=== PATIENT | female | born 1970 | race Caucasian/White ===

== ENCOUNTER 2024-12-28 01:56 | Emergency (ER) | payer OTHER, SELFPAY ==
[2024-12-28 01:57] VITALS: BP 124/74; PULSE 75; RESP 14; TEMP 36.4; O2SAT 99
--- NOTE | 2024-12-28 03:22 | ED_ITS ---
HPI - General Adult General Chief complaint: Unspecified Stated complaint: Post op day 12 breast lift, infectoin Time Seen by Provider: 12/28/24 03:00 Source: patient Mode of arrival: ambulatory Limitations: no limitations History of Present Illness HPI narrative: Patient presents postop day 12 from a revision/exchange of her breast implants with breast reduction. This procedure was performed 12/15/2024 in [facility] at [facility] in [address] [place] [address] by surgeon Juan Ballard. She had a follow-up appointment the next day and then another follow-up appointment 1 week after. She initially had to 450 cc saline implants placed 20 years ago followed by 500cc but 2 weeks ago changed out to 375cc. 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 During/near the end of the shift she noticed that her bandages were drained in foul malodorous smelling purulent discharge. She denies any fevers or chills but she felt more tired and fatigued than normal. She had texted him yesterday at that time and inquired about any antibiotic use and he had recommendations for bandage/dressing changes with particular tape instructions but otherwise did not recommend antibiotics at that time. Overnight she has continued to have some scant purulent drainage particular under the left breast that she noticed at 2:00 a.m. No nipple discharge. 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 HEAD: Normocephalic, atraumatic. EYES: Non injected, non icteric ENT: Nares clear, no rhinorrhea or epistaxis. NECK: Supple. CHEST: Speaking in full sentences. No respiratory distress. Breast: Generally symmetric breasts with well-healing ecchymosis particularly along the inferior aspect. Breasts are nontender to palpation without masses or abnormalities. There is an area of purulence at the left lower quadrant of the left breast. No axillary lymphadenopathy. No tenderness within the tail of Hope bilaterally. No appreciable nipple discharge. HEART: Regular rate and rhythm. . ABDOMEN: Soft, nondistended. EXTREMITIES: Normal range of motion. No lower extremity edema. SKIN: Warm, dry, no rash. NEURO: No focal deficits. Alert and oriented x3. PSYCH: Normal mood and affect. Course Vital Signs Vital signs: Vital Signs Temperature 97.6 F 12/28/24 01:57 Pulse Rate 75 12/28/24 01:57 Respiratory Rate 14 12/28/24 01:57 Blood Pressure 124/74 12/28/24 01:57 Pulse Oximetry 99 12/28/24 01:57 Oxygen Delivery Room Air 12/28/24 01:57 Temperature 97.6 F 12/28/24 01:57 Pulse Rate 74 12/28/24 04:41 Respiratory Rate 16 12/28/24 04:41 Blood Pressure 108/56 L 12/28/24 04:41 Pulse Oximetry 100 12/28/24 04:41 Oxygen Delivery Room Air 12/28/24 01:57 Medical Decision Making MDM Narrative Medical decision making narrative: Patient presents postop day 12 from a breast implant revision and breast lift performed on 12/15/2024 in [facility] at [facility] in [address] [place] [address] by surgeon Juan Ballard. She is concerned about a postop infection noting some purulent foul-smelling drainage at incision site under left breast. In the emergency department they are afebrile with vital signs within normal limits. Left generally unremarkable with normal renal function no leukocytosis. A wound culture was obtained from the area of concern. Patient has no known drug allergies. Patient given 1st dose of cephalexin in the emergency department with the rest of the course prescribed. She is encouraged to follow-up with her surgeon and return to the emergency department with any new/worsening/unmanaged symptoms. She verifies understanding. Stable for discharge. Differential Diagnosis Differential Diagnosis: Postop complication, infection, abscess; leak Vital Signs Vital Signs: Vital Signs Temperature 97.6 F 12/28/24 01:57 Pulse Rate 75 12/28/24 01:57 Respiratory Rate 14 12/28/24 01:57 Blood Pressure 124/74 12/28/24 01:57 Pulse Oximetry 99 12/28/24 01:57 Oxygen Delivery Room Air 12/28/24 01:57 Temperature 97.6 F 12/28/24 01:57 Pulse Rate 74 12/28/24 04:41 Respiratory Rate 16 12/28/24 04:41 Blood Pressure 108/56 L 12/28/24 04:41 Pulse Oximetry 100 12/28/24 04:41 Oxygen Delivery Room Air 12/28/24 01:57 Lab Data 12/28/24 03:37 12/28/24 03:37 Labs: Lab Results 12/28/24 Range/Units 03:37 WBC 4.8 (4.5-10.0) K/mm3 RBC 5.20 (4.2-5.4) M/mm3 Hgb 14.8 (12.0-15.0) g/dL Hct 45.5 (37.0-47.0) % MCV 87.5 (80-100) fl MCH 28.5 (26-34) pg MCHC 32.5 (32-36) g/dl RDW 14.6 H (11.5-14.5) % Plt Count 378 H (150-375) k/mm3 MPV 9.4 (7.4-10.4) fl Immature Gran % (Auto) 0.2 (0-0.5) % Neut % (Auto) 62.7 (45.5-73.1) % Lymph % (Auto) 25.5 (18.3-44.2) % Cotton % (Auto) 8.5 (2.6-8.5) % Eos % (Auto) 1.9 (0-4.4) % Baso % (Auto) 1.2 (0.2-1.2) % Lymph # (Auto) 1.23 (0.9-3.2) K/mm3 Cotton # (Auto) 0.4 (0.1-0.6) K/mm3 Eos # (Auto) 0.1 (0-0.3) K/mm3 Baso # (Auto) 0.1 (0.0-0.1) K/mm3 Abs Immat Gran (auto) 0.01 (0.00-0.031) K/mm3 Absolute Neuts (auto) 3.0 (1.3-6.7) K/mm3 Absolute Nucleated RBC 0.000 (0.0-0.012) K/mm3 Nucleated RBC % 0.0 (0.0-0.2) % Sodium 139 (137-145) mmol/L Potassium 4.3 (3.4-5.0) mmol/L Chloride 105 (98-107) mmol/L Carbon Dioxide 24 (22-30) mmol/L Anion Gap 10 (4-12) mmol/L BUN 11 (7-17) mg/dL Creatinine 0.85 (0.7-1.0) mg/dL Estim Creat Clear Calc 61 ml/min Estimated GFR > 60 (59 - ) Glucose 88 (65-110) mg/dL Calcium 8.8 (8.4-10.2) mg/dL Discharge Plan Discharge Clinical Impression: Postoperative infection of breast incision Patient Disposition: Home, Self-Care Condition: Stable Instructions: Antibiotic Form, Warm Compress or Soak (ED), Breast Reduction (DC) Additional Instructions: Normal kidney function and no leukocytosis. A wound culture is in process. Take course of antibiotics. Follow-up with your surgeon. Return to the emergency department with any new/worsen/unmanaged symptoms Patient Language: South Korean Prescriptions: New cephalexin 500 mg capsule 500 mg PO Q6H 5 Days Qty: 19 0RF Rx Instructions: received first dose in ED 3 AM Follow-up/Referrals: PHYSICIAN NOT ON STAFF,NONSTAFF [Primary Care Provider] - Stand Alone Forms: Work/School Release IP Time of Disposition: 04:22
[2024-12-28 03:42] LABS: Basophils Absolute Auto 0.1 K/mm3 (0.0-0.1); Basophils Percent Auto 1.2 % (0.2-1.2); Eosinophils Absolute Auto 0.1 K/mm3 (0-0.3); Eosinophils Percent Auto 1.9 % (0-4.4); Hematocrit 45.5 % (37.0-47.0); Hemoglobin 14.8 g/dL (12.0-15.0); Immature Granulocyte Absolute 0.01 K/mm3 (0.00-0.031); Immature Granulocyte Percent A 0.2 % (0-0.5); Lymphocytes Absolute Auto 1.23 K/mm3 (0.9-3.2); Lymphocytes Percent Auto 25.5 % (18.3-44.2); Mean Corpuscular HGB Conc 32.5 g/dl (32-36); Mean Corpuscular Hemoglobin 28.5 pg (26-34); Mean Corpuscular Volume 87.5 fl (80-100); Mean Platelet Volume 9.4 fl (7.4-10.4); Monocytes Absolute Auto 0.4 K/mm3 (0.1-0.6); Monocytes Percent Auto 8.5 % (2.6-8.5); Neutrophils Percent Auto 62.7 % (45.5-73.1); Platelet Count Result 378 k/mm3 (150-375); Red Cell Distribution Width 14.6 % (11.5-14.5); White Blood Count 4.8 K/mm3 (4.5-10.0)
--- OUTSIDE RECORDS SUMMARY | 2024-12-28 03:43 | XMS_ITS | Referral Summary ---
Author Organization [facility] Address [address] [place] [phone] Care Team Providers Care Hand Stemmer Name Role Phone Stephenie Alarcon MD Primary Care Provid er Allergies No known active allergies Medications buPROPion XL (WELLBUTRIN XL) 150 mg 24 hr tablet TAKE 2 TABLETS (300 MG TOTAL) BY MOUTH EVERY MORNING. 180 tablet 1 08/29/2024 Active Active Problems No known active problems Immunizations Immunization Administration Dates Next Due Influenza, Unspecified 01/06/2024 Social History Tobacco Use Types Packs/Day Years Used Date Smoking Tobacco: Former Cigarettes Tobacco Cessation:Counseling Given: No Comments:5 pk yr hx AUDIT-C Answer Date Recorded Q1: How often do you have a drink containing alc ohol? 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 Gender Identity Not on file Sexual Orientation Not on file Last Filed Vital Signs Vital Sign Reading Time Taken Comments Blood Pressure 110/80 01/06/2024 1:21 PM CDT Pulse 71 01/06/2024 1:21 PM CDT Temperature 36.2 C (97.1 F) 01/06/2024 1:21 PM CDT Respiratory Rate 20 01/06/2024 1:21 PM CDT Oxygen Saturation 99% 01/06/2024 1:21 PM CDT Inhaled Oxygen Concentration - - Weight 66.7 kg (147 lb) 01/06/2024 1:21 PM CDT Height 165 cm (5' 4.96 ) 01/06/2024 1:21 PM CDT Body Mass Index 24.49 01/06/2024 1:21 PM CDT Plan of Treatment Not on file Insurance [employer] Address: [facility] [id number] [place] [phone] Care Teams Hand Stemmer Relationship Specialty Start Date End Date Stephenie Alarcon MD [address] [facility] [id number] [place] [id number] PCP - General Internal Medicine 01/06/24
--- OUTSIDE RECORDS SUMMARY | 2024-12-28 03:43 | XMS_ITS | Clinical Summary ---
Author Organization [facility] Address [address] [place] [phone] Care Team Providers Care Stitch Cleaner Name Role Phone Stephenie Alarcon MD Primary Care Provid er Allergies No known active allergies Medications buPROPion XL (WELLBUTRIN XL) 150 mg 24 hr tablet TAKE 2 TABLETS (300 MG TOTAL) BY MOUTH EVERY MORNING. 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 Gender Identity Not on file Sexual Orientation Not on file Obstetrics History Last Filed Vital Signs Vital Sign Reading [...] 01/06/2024 1:21 PM CDT Plan of Treatment Health Maintenance Due Date Last Done Comments Breast Cancer Screening-Mammogram 1972 Cervical Cancer Screening 1972 Colon Cancer Screening-Colonoscopy 1972 Hepatitis C Screening 1972 DTaP/Tdap/Td Vaccine (1 - Tdap) 1983 Hepatitis B Screening 1990 Zoster Vaccine (1 of 2) 2022 Covid-19 Vaccine (3 - season) 2024 05/21/2021, 04/30/2021 Influenza Vaccine (#1) 2024 , 07/05/2022, 06/03/2021, Additional history exists Depression Screening 01/05/2025 01/06/2024 Regular Well Visit/Exam 18-64 01/05/2025 01/06/2024, 01/06/2024 Pneumococcal vaccine <65 Aged Out No longer eligible based on patient's age to complete this topic Insurance [employer] Address: [facility] [id number] [phone] Care Teams Stitch Cleaner Relationship Specialty Start Date End Date Stephenie Alarcon MD [address] [facility] [address] [place] [address] PCP - General Internal Medicine 01/06/24
--- OUTSIDE RECORDS SUMMARY | 2024-12-28 03:43 | XMS_ITS | Clinical Summary ---
Author Organization [facility] Address [address] [place] [address] Care Team Providers Care Cash Surrender Calculator Name Role Phone Unavailable Primary Care Provider Unavailabl e Source Comments [facility],non-owned Affiliates and Associated Physician Practices is amultiple site organization consisting of ambulatory clinics and hospital sitesin [place], [place], [place] and [place]. This disclosure is being madepursuant to the Care Everywhere program and may not contain all information available regarding this patient. Last updated 18.[facility] Allergies No known active allergies Medications Be aware that medications may not be up to date on this document. Always verify current medications with the patient. No known medications Immunizations Name Administration Dates Next Due INFLUENZA VACCINE, QUADR. (F LUZONE; FLULAVAL; FLUARIX; AFLURIA QUADRIVALENT; 6MO+), 0.5 ML (IIV4) 08/04/2017 Family History Medical History Relation Name Comments Asthma Neg Hx Autoimmune Disease Neg Hx Bipolar Disorder Neg Hx Cancer - Breast Neg Hx Cancer - Colon Neg Hx Cancer - Other Neg Hx Cancer - Ovarian Neg Hx Cancer - Pancreatic Neg Hx Cancer - Prostate Neg Hx Depression Neg Hx Eczema Neg Hx Hypertension Neg Hx Migraine Neg Hx Osteoporosis Neg Hx Seizures Neg Hx Sudd. <30 Neg Hx Thyroid Disease Neg Hx Ulcerative Colitis Neg Hx Social History Tobacco Use Types Packs/Day Years Used Date Smoking Tobacco: Former Cigarettes 0.5 10 Smokeless Tobacco: Never Sex and Gender Information Value Date Recorded Sex Assigned at Not on file Gender Identity Not on file Sexual Orientation Not on file Last Filed Vital Signs Vital Sign Reading Time Taken Comments Blood Pressure 92/60 04/27/2018 9:37 AM CDT Pulse 80 04/27/2018 9:37 AM CDT Temperature 36.9 C (98.4 F) 04/27/2018 9:37 AM CDT Respiratory Rate 16 04/27/2018 9:37 AM CDT Oxygen Saturation - - Inhaled Oxygen Concentration - - Weight 65.8 kg (145 lb) 04/27/2018 9:37 AM CDT Height 162.6 cm (5' 4 ) 04/27/2018 9:37 AM CDT Body Mass Index 24.89 04/27/2018 9:37 AM CDT Plan of Treatment Health Maintenance Due Date Last Done Comments COLOGUARD (AGES 45-75) - COL ON CA SCREENING 1972 COLON MONITORING 1972 COLONOSCOPY - COLON CA SCREENING 1972 CT COLONOGRAPHY - COLON CA SCREENING 1972 Colorectal Cancer Screening 1972 FIT - COLON CA SCREENING 1972 FLEX SIG - COLON CA SCREENING 1972 LIPID TESTING 1972 MAMMOGRAM 1972 PAP SMEAR 1972 HIV SCREENING 1987 HEPATITIS C SCREENING 05/16/1990 DTAP/TDAP/TD VACCINES (1 - Tdap) 1991 HEPATITIS B VACCINE (1 of 3 - 19+ 3-dose series) 1991 PNEUMOCOCCAL VACCINE 50+ (1 of 1 - PCV) 2022 ZOSTER VACCINE (1 of 2) 2022 COVID-19 VACCINE (1 - 2023-2 5 season) 2024 INFLUENZA VACCINE (#1) 2024 08/04/2017 DEPRESSION SCREENING 10/05/2024 HIB VACCINE Aged Out No longer eligi ble based on patient's age to complete this topic HPV VACCINE Aged Out No longer eligi ble based on patient's age to complete this topic MENINGOCOCCAL (Group B) VACC INE SHARED DECISION-MAKING Aged Out No longer eligibl e based on patient's age to complete this topic MENINGOCOCCAL GROUPS A/C/Y/W VACCINE Aged Out No longer eligible b ased on patient's age to complete this topic PNEUMOCOCCAL VACCINE Aged Out No long er eligible based on patient's age to complete this topic
[2024-12-28 03:52] LABS: Anion Gap 10 mmol/L (4-12); Blood Urea Nitrogen 11 mg/dL (7-17); Calcium 8.8 mg/dL (8.4-10.2); Carbon Dioxide 24 mmol/L (22-30); Chloride 105 mmol/L (98-107); Estimated CRCL calculation 61 ml/min; Estimated Glomerular Filt Rate > 60; Glucose 88 mg/dL (65-110); Potassium 4.3 mmol/L (3.4-5.0); Sodium 139 mmol/L (137-145)
[2024-12-28] MEDS: CEPHALEXIN 500 MG CAPSULE PO (04:02)
[2024-12-28 04:41] VITALS: BP 108/56; PULSE 74; RESP 16; O2SAT 100
== END 2024-12-28 04:42 | disposition home or self-care (01) ==
PROVIDERS: Emergency Provider Student in an Organized Health Care Education/Training Program
DX: T81.41XA Infection following a procedure, superficial incisional surgical site, initial encounter (principal); L08.9 Local infection of the skin and subcutaneous tissue, unspecified; Y83.8 Other surgical procedures as the cause of abnormal reaction of the patient, or of later complication, without mention of misadventure at the time of the procedure
CPT/HCPCS: 36415; 80048; 85025; 87070; 87075; 87181; 87205; 99283; A9270